=== PATIENT | male | born 1975 | race Caucasian/White ===

== ENCOUNTER → 2016-03-31 | Outpatient (REF) | LOC: WSOH 13:47 | DX: Z02.89 Encounter for other administrative examinations (principal) ==

== ENCOUNTER 2018-10-30 01:58 | Emergency (ER) | payer BC ==
[~2018-10-30] VITALS: Ht 182.9 cm; Wt 90.9 kg
[2018-10-30 02:04] VITALS: TEMP 98.7
[2018-10-30 02:29] LABS: BASO # 0.1 (0.0-0.2); BASO % 0.9 % (0.0-2.0); EOS # 0.1 (0.0-0.7); EOS % 2.2 % (0-4.0); GRAN # 3.2 (1.4-6.5); GRAN % 55.2 % (42.2-75.2); HEMATOCRIT 43.6 % (42.0-52.0); HEMOGLOBIN 15.1 g/dl (13.5-18.0); LYMPH # 1.6 (1.2-3.4); LYMPH % 27.3 % (20.0-51.0); MEAN CELL VOLUME 90 fl (80.0-100.0); MEAN CORPUSCULAR HEMOGLOBIN 31 pg (27.0-31.0); MEAN CORPUSCULAR HGB CONC 35 g/dl (33.0-37.0); MONO # 0.8 (0.1-0.6); MONO % 14.1 % (1.7-9.3); PLATELET COUNT 152 K/mm3 (130-400); RED BLOOD COUNT 4.86 M/mm3 (4.20-5.60); REDCELL DISTRIBUTION WIDTH-CV 11.4 % (11.5-14.5)
[2018-10-30] MEDS ORDERED: TOPROL XL 50MG50 MG PO (02:32)
[2018-10-30] MEDS ORDERED: NORVASC 10MG10 MG PO (02:33)
[2018-10-30 02:37] LABS: ALANINE AMINOTRANSFERASE 81 U/L (21-72); ALBUMIN 4.5 gm/dL (3.5-5.0); ALKALINE PHOSPHATASE 60 U/L (50-136); ANION GAP 12 mmol/L (7-16); AST,SGOT 80 U/L (15-37); BILIRUBIN,TOTAL 1.1 mg/dL (0.0-1.0); BLOOD UREA NITROGEN 10 mg/dL (9-20); CALCIUM 9.6 mg/dL (8.4-10.2); CARBON DIOXIDE 27 mmol/L (22-30); CHLORIDE 98 mmol/L (98-107); CREATININE, serum 0.78 (0.66-1.25); GLUCOSE 91 mg/dL (74-106); POTASSIUM 3.7 mmol/L (3.4-5.0); SODIUM 138 mmol/L (137-145); TOTAL PROTEIN 8.2 gm/dL (6.4-8.2)
[2018-10-30 02:49] LABS: TROPONIN-I < 0.012 ng/mL (0.000-0.035)
[2018-10-30 04:04] VITALS: BP 139/94; PULSE 68
[2018-10-30] MEDS ORDERED: PRINIVIL10 MG PO (04:05)
[2018-10-30] MEDS ORDERED: FLEXERIL 1010 MG/TAB PO (04:05)
== END 2018-10-30 04:18 | disposition home or self-care (01) ==
LOC: COL.ER 01:58
PROVIDERS: Emergency Medicine
DX: I10 Essential (primary) hypertension (principal); R07.89 Other chest pain; F17.220 Nicotine dependence, chewing tobacco, uncomplicated
CPT/HCPCS: J1885